=== PATIENT | female | born 1935 | race Caucasian/White ===

== ENCOUNTER → 2019-11-28 13:17 | Outpatient (CLI) | payer OTHER ==
--- NOTE | ~2019-11-28 | EC ---
PATIENT:RAISA BLANCO DATE OF SERVICE: 11/28/19 SEX: F MEDICAL RECORD: [id number] DATE OF : [birth year] [facility] AGE OF PATIENT: 84 ADMISSION DATE: 11/28/19 REFERRING PHYSICIAN: INTERPRETING PHYSICIAN: WILMAN BARCENAS MD ECHOCARDIOGRAM REPORT ECHO CHARGES 4 ECHO COMPLETE Date: 11/28/19 CLINICAL DIAGNOSIS: CAD/ HX OF CARDIOMYOPATHY/CAD/STENT ECHOCARDIOGRAPHIC MEASUREMENTS (adult normal given) AC root (d.<3.7cm) 2.8 cm LV Septum d (<1.2 cm> 1.3 cm Valve Excursion 1.3 cm LV Septum (systole) 1.4 cm Left Atria (s.<4.0cm> 4.2 cm LVPW d(<1.2cm) 1.5 cm RV (d.<2.3cm) 4.1 cm LVPW (sytole) 1.6 cm LV diastole(<5.6CM) 5.4 cm MV E-F(>70mm/sec) cm LV systole 4.5 cm LVOT Diameter 1.6 cm MV exc.(>10mm) cm Est.ejection fraction (50-75%) % DOPPLER: LVIT cm/sec A 107.0cm/sec E 84.0 cm/sec LA cm/sec RVSP 34 mmHg LVOT 103 cm/sec AOP1/2T m/s Asc. Ao 149 cm/sec RVOT 86 cm/sec RA cm/sec PA 130 cm/sec AV Gradient Peak 8.88 mmHg AV Mean 4.63 mmHg AV Area 1.4 cm MV Gradient Peak 5.78 mmHg MV Mean 1.85 mmHg MV Area cm COMMENTS: Hvac Technician Residential: 2 HERMANN MANCINI Class C Driver: 3 Dr. Lindo TAPE# PACS Pericardial Effusion N DATE OF SERVICE: Adequate 2-D echo, color-flow and spectral Doppler, and M-mode. Mild LVH. LV internal dimension is normal. LV is mildly globally hypo. EF at lower limits of normal, mildly reduced at 45% to 50%. Aortic valve is sclerotic. There is no evidence of stenosis by Doppler interrogation. Left atrium minimally dilated at 4.2 cm. Mitral valve is thickened. Mild plus MR. Right-sided chambers grossly normal. Mild TR. ECHOCARDIOGRAM REPORT [id number] RAISA BLANCO TRANSINT:[id number] Voice Confirmation ID: [id number] DOCUMENT ID: [id number] WILMAN BARCENAS MD CC: [id number] DICTATION DATE: 12/02/191531 CATH LAB TECHNOLOGIST: 12/02/191913 [facility]P CLI 11/28/[address] [facility] [address] [id number]
== END | disposition home or self-care (01) ==
LOC: D.HCCECHO 13:17 → EDBD 13:30
PROVIDERS: ATTEND Internal Medicine Interventional Cardiology
DX: I25.10 Atherosclerotic heart disease of native coronary artery without angina pectoris (principal)

== ENCOUNTER → 2021-01-07 13:45 | Outpatient (CLI) | payer OTHER ==
--- NOTE | 2021-01-11 08:09 | EC ---
PATIENT:RAISA BLANCO DATE OF SERVICE: 01/07/21 SEX: F MEDICAL RECORD: [id number] DATE OF : 39 LOCATION:[facility] AGE OF PATIENT: 85 ADMISSION DATE: 01/07/21 REFERRING PHYSICIAN: INTERPRETING PHYSICIAN: WILMAN BARCENAS MD ECHOCARDIOGRAM REPORT ECHO CHARGES 4 ECHO COMPLETE Date: 01/07/21 CLINICAL DIAGNOSIS: CARDIOMYOPATHY/ASSESS EF ECHOCARDIOGRAPHIC MEASUREMENTS (adult normal given) AC root (d.<3.7cm) 2.8 cm LV Septum d (<1.2 cm> 1.0 cm Valve Excursion 1.3 cm LV Septum (systole) 1.2 cm Left Atria (s.<4.0cm> 3.9 cm LVPW d(<1.2cm) 1.1 cm RV (d.<2.3cm) 3.6 cm LVPW (sytole) 1.2 cm LV diastole(<5.6CM) 5.6 cm MV E-F(>70mm/sec) cm LV systole 4.6 cm LVOT Diameter 1.5 cm MV exc.(>10mm) 1.1 cm Est.ejection fraction (50-75%) % DOPPLER: LVIT cm/sec A 72.0 cm/sec E 108.0 cm/sec LA cm/sec RVSP 45 mmHg LVOT 91 cm/sec AOP1/2T m/s Asc. Ao 132 cm/sec RVOT 50 cm/sec RA cm/sec PA 105 cm/sec AV Gradient Peak 6.99 mmHg AV Mean 3.86 mmHg AV Area 1.2 cm MV Gradient Peak 7.51 mmHg MV Mean 2.36 mmHg MV Area cm COMMENTS: Photography Editor: 2 HERMANN MANCINI Top Bottom Attaching Machine Operator: 3 Dr. Lindo TAPE# PACS Pericardial Effusion N DATE OF SERVICE: Adequate 2D, color flow imaging, spectral Doppler, and M-Mode. No LVH. LV internal dimensions are normal. LV is mildly globally hypo with EF lower limits of normal to mildly reduced EF 45% to 50%. Aortic valve is sclerotic without stenosis by Doppler interrogation. Left atrium is normal. Mitral valve shows no prolapse. Moderate MR. Right side is grossly normal. Mild TR. ECHOCARDIOGRAM REPORT [id number] RAISA BLANCO TRANSINT:[id number] Voice Confirmation ID: [id number] DOCUMENT ID: [id number] WILMAN BARCENAS MD at 0809 CC: [id number] DICTATION DATE: 01/08/2137 LINE INSTALLATION SUPERVISOR: 01/08/212004 [facility] CLI 01/07/21 [id number] [place] [address]
== END | disposition home or self-care (01) ==
LOC: D.HCCECHO 13:30
PROVIDERS: ATTEND Internal Medicine Interventional Cardiology
DX: I42.9 Cardiomyopathy, unspecified (principal)